=== PATIENT | male | born 1950 | race Caucasian/White ===

== ENCOUNTER 2018-02-12 08:35 | Inpatient (IN) ==
[2018-02-12] MEDS ORDERED: SALINE FLUSH 10ml SYRINGE IVF PRN (08:53)
--- NOTE | 2018-02-12 08:56 | Emergency Department Report ---
General Adult HPI - General Chief complaint: Medical Emergency Stated complaint: cold chills,weak, diabetic Time Seen by Provider: 02/12/18 08:49 Source: patient, family Mode of arrival: wheelchair Limitations: no limitations - History of Present Illness HPI narrative: 67 M presents to the emergency department with a chief complaint of generalized weakness and lightheadedness. Patient noted onset of symptoms at approximately 0200 today. Patient denies any pain or discomfort. Patient notes that he feels very weak when attempting to ambulate and be up and moving. He also was feeling very cold earlier today prior to arrival to the ED. He does not note any exacerbating or remitting factors. No other complaints or associated symptoms. - Related Data Home Medications Medication Instructions Recorded Confirmed Atorvastatin [Lipitor] 20 mg PO HS 02/12/18 02/12/18 Glimepiride [Amaryl] 4 mg PO BID 02/12/18 02/12/18 Lansoprazole [Prevacid] 30 mg PO DAILY 02/12/18 02/12/18 Sitagliptin Phos/Metformin HCl 1 tab PO DAILY 02/12/18 02/12/18 [Janumet Xr 100-1,000 mg Tablet] Allergies Allergy/AdvReac Type Severity Reaction Status Date / Time Penicillins AdvReac Unknown NAUSEA Verified 02/12/18 09:40 Review of Systems Constitutional: Reports: chills. Denies: fever Eyes: Denies: eye pain, vision change ENT: Denies: ear pain, throat pain Cardiovascular: Denies: chest pain, palpitations Respiratory: Denies: cough, dyspnea Gastrointestinal: Denies: abdominal pain, nausea, vomiting, diarrhea Genitourinary: Denies: urgency, dysuria Musculoskeletal: Denies: back pain, arthralgia Integumentary: Denies: erythema, rash Neurological: Denies: headache, numbness, paresthesias Psychiatric: Denies: anxiety, depression Endocrine: Denies: polydipsia, polyuria Hematological/Lymphatic: Denies: easy bruising, lymphadenopathy Allergic/Immunologic: Denies: facial swelling, urticaria [facility] Medical History (Last Reviewed 01/07/18 @ 13:21 by FRANCISCO Nascimento) Diabetes mellitus type 2, uncontrolled, without complications (Chronic Medical ~ 2007) Control improved on Trulicity. However the use with DPP4 inhibitor is not indicated. Will stop Januvia XR. Diabetic peripheral neuropathy associated with type 2 diabetes mellitus ( Chronic Medical) Mild. Hyperlipidemia LDL goal <100 (Chronic Medical) On Lipitor. Hypercalcemia (Chronic Medical) Uncertain etiology, but should have further evaluation given history of kidney stones. Nephrolithiasis (Chronic Medical) CKD (chronic kidney disease) stage 3, GFR 30-59 ml/min (Chronic Medical) Surgical History: -lithotrypsy kidney stones. -extraction of all teeth Family History: Family History (Last Reviewed 01/07/18 @ 13:21 by Trinidad Morales Ac) Brother Cancer of thyroid Father Heart disease Sister Diabetes Mother Stroke - Social History Smoking status: Never smoker Substance use type: does not use Alcohol intake frequency: does not drink Physical Exam - Limitations Limitations: no limitations - General General appearance: alert, in no apparent distress - Normal Exams: Head:: Normocephalic without trauma Eyes:: Pupils are PERRLA w/ EOMI, No scleral icterus, irritation, or foreign bodies noted ENMT:: No facial trauma, nasal exudates, pharyngeal erythema, or exudates are noted Dental: No fractured, loose, or missing teeth noted Neck:: Full range of motion, without adenopathy, JVD, bruits or thyromegaly Chest/Respirations:: Clear all michael (Coarse breath sounds right side.), with good airflow, and symmetry bilaterally Cardiovascular:: Regular rate and rhythm, without murmur or gallop, Pulses 2+ all extremities, capillary refill, <2 seconds all extremities Abdomen:: Bowel sounds positive, soft, non-tender, non-distended, no hepatosplenomegaly, masses or bruits noted Lymphatic:: No lymphadenopathy, or lymphedema noted Musculoskeletal:: No tenderness, or deformity noted, good range of motion, all extremities Integumentary:: No rashes, hives, or bruising noted, hair and nails, without abnormality Neurological:: Patient is alert, and oriented, cranial nerves, motor/sensory/ cerebellar, exams w/o gross deficits, to observation Psychiatric:: Patient exhibits, appropriate attention, emotion and affect Medical Decision Making - [facility] Narrative Medical decision making narrative: Labs/imaging were discussed in detail with the patient and family and questions are answered. Patient is given approximately 2.5 L normal saline intravenously in the emergency department. Patient is started on Levaquin 750 mg IV times one at 1051 when sepsis was considered. Patient was never hypotensive in the emergency department and did not have a lactic acid greater than 4. Patient declines offered analgesic pain medication in the emergency department. Patient is discussed with the service of Dr. Chon Alvarenga admitted to his service in improved condition. No further orders from accepting physician who is in agreement with the current plan of management. Patient is accepted to the hospital by Dr. Alvarenga. Patient and family are in agreement with the current plan of management. No further orders - Differential Diagnosis pneumonia, UTI, metabolic disorder, dehydration - Lab Data Result diagrams: 02/12/18 09:09 02/12/18 09:09 Lab Results 02/12/18 Range/Units 08:45 Glucometer 190 (65-110) mg/dL - Radiology Data CXR - R sided infiltrate. CT head: No acute processes. - EKG Data EKG #1 EKG results narrative: Accelerated junctional rhythm. No STEMI. 127 bpm. Disposition Clinical Impression: Pneumonia Qualifiers: Pneumonia type: due to unspecified organism Laterality: unspecified laterality Lung location: unspecified part of lung Qualified Code(s): J18.9 - Pneumonia, unspecified organism Disposition: 02 To [facility] Acute Care Condition: Improved Time of Disposition: 09:57 - Seen By: physician
--- NOTE | 2018-02-12 09:52 | XRay Report ---
Indication: gen. weakness, fever and chills PROCEDURE: XR chest 1V: Encounter: Initial Comparison: None Findings: Dense consolidation that may be within the right middle or right lower lobe. The remaining lung michael are clear. No pleural effusion or pneumothorax. Heart size and mediastinal contours are within normal limits. Pulmonary vascularity is normal. Impression: Right basilar pneumonia. .
--- NOTE | 2018-02-12 10:02 | CT Scan Report ---
Indication: weakness PROCEDURE: CT head/brain wo con: Encounter: Initial Comparison: December 24, 2014 Technique: Axial CT images through the head were performed without contrast. Iterative Reconstruction dose reducing technique was utilized. FINDINGS: The ventricles are of normal size, shape, and contour for the patient's age. Interval development of a chronic appearing left caudate lacunar infarct. There are scattered areas of low attenuation in the white matter which most likely represent changes from chronic microvascular ischemia. The brainstem, cerebellum, and cerebral hemispheres otherwise have a normal morphology and CT attenuation. There is no evidence of midline displacement. No hemorrhage, signs of acute territorial stroke, mass effect, mass lesions, or edema is evident. The visualized portions of the skull base, midface, and calvarium demonstrate no abnormality. The paranasal sinuses are well aerated and free of significant disease. The tympanic and mastoid cavities appear normal. IMPRESSION: No acute intracranial abnormality or hemorrhage. .
[2018-02-12] MEDS ORDERED: NS 1,000 ML IV ONE (10:22)
[2018-02-12] MEDS ORDERED: LEVOFLOXACIN PB 750 MG/150 ML BAG IV SCH (11:00)
[2018-02-12] MEDS ORDERED: NS 1,000 ML IV SCH (11:15)
[2018-02-12] MEDS ORDERED: BISACODYL 10 MG SUPPOSITORY RECTALLY PRN (11:20)
[2018-02-12] MEDS ORDERED: PROCHLORPERAZINE 10 MG/2 ML INJECTION IVP PRN (11:20)
[2018-02-12] MEDS ORDERED: ACETAMINOPHEN 325 MG TABLET PO PRN (11:20)
[2018-02-12] MEDS ORDERED: MENTHOL COUGH DROPS (RICOLA) MM ONE (11:20)
[2018-02-12] MEDS: NS 1,000 ML IV SCH ×6 (11:20→19:53)
[2018-02-12] MEDS ORDERED: PNEUMOCOCCAL 13 VACCINE 0.5ml INJECTION IM ONE (11:48)
--- NOTE | 2018-02-12 11:50 | History & Physical Report ---
History of Present Illness Date: 02/12/18 Chief complaint: Chills HPI: Patient is a 67-year-old male who awoke at 2 a.m. with chills, accompanied with fatigue. This morning he felt mildly short of breath. He presented to the emergency room for further evaluation and on arrival he was found be tachycardic in the 120s and tachypnea 26 breaths per minute. Basic laboratory studies were obtained. Count was found be normal at 10.7 with 78% neutrophils and 9% bandemia. Chemistry panel was unremarkable. A venous lactate was obtained that was elevated at 3.0. Troponin was undetectable and UA was negative. A chest x-ray was obtained that did reveal basilar pneumonia. Was started on IV fluid bolus of 30 mL per kilogram with a total volume to be 2700 mL. Patient was started on Levaquin living blood cultures. Since persistent tachycardia, accompanied with findings of pneumonia. The hospitalist services were contacted and accepted patient for outpatient observation for further evaluation and treatment. Fermin is seen the emergency room. He is alert, oriented and pleasant. He does state he felt normal until waking up at 2 a.m. with chills. At time of examination. Patient states that he feels much better and contemplates leaving. However, given his elevated venous lactate. It was recommended that he be observed with repeat labs later today. Patient is in agreement. Review of Systems All systems PM: 10-point ROS was reviewed, no additional remarkable complaints except - Constitutional Constitutional: Present: chills, fatigue Past Medical History Medical History: Medical History (Last Reviewed 02/12/18 @ 11:50 by Radha Cantu, RHYS) Diabetes mellitus type 2, uncontrolled, without complications (Chronic) Onset Date: ~2007 Control improved on Trulicity. However the use with DPP4 inhibitor is not indicated. Will stop Januvia XR. Diabetic peripheral neuropathy associated with type 2 diabetes mellitus (Chronic ) Mild. Hyperlipidemia LDL goal <100 (Chronic) On Lipitor. Hypercalcemia (Chronic) Uncertain etiology, but should have further evaluation given history of kidney stones. Nephrolithiasis (Chronic) CKD (chronic kidney disease) stage 3, GFR 30-59 ml/min (Chronic) Surgical History: Lithotrypsy of renal stones. Extraction of all teeth. Cyst removed from shoulder Family History: Brother- Cancer of thyroid Father- CAD with bypass, cancer Sister- Diabetes Mother- Stroke, Back problems Family History: As Above - Social History Smoking status: Former smoker (in his 20's) Substance use type: does not use Alcohol intake frequency: does not drink Housing: house Household members: spouse Current occupational status: employed Social history: PCP Dr Piña Medications Home Medications Medication Instructions Recorded Confirmed Type Atorvastatin [Lipitor] 20 mg PO HS 02/12/18 02/12/18 History Glimepiride [Amaryl] 4 mg PO BID 02/12/18 02/12/18 History Lansoprazole [Prevacid] 30 mg PO DAILY 02/12/18 02/12/18 History Sitagliptin Phos/Metformin HCl 1 tab PO DAILY 02/12/18 02/12/18 History [Janumet Xr 100-1,000 mg Tablet] Allergies Allergy/AdvReac Type Severity Reaction Status Date / Time Penicillins AdvReac Unknown NAUSEA Verified 02/12/18 09:40 Exam Vital Signs: Temperature 97.3 F 02/12/18 10:12 Pulse Rate 119 H 02/12/18 10:53 Respiratory Rate 26 H 02/12/18 10:53 Blood Pressure 112/81 02/12/18 10:53 Pulse Oximetry 95 02/12/18 10:53 Telemetry Rhythm: Sinus Tachycardia (120's) Height/Weight/BMI: Height 1.83 m Weight 90.5 kg - Constitutional Present: well nourished, well developed - Routine HEENT Exam Eye: Present: EOMI ENT: Present: mucous membranes moist, dentition normal - Routine Respiratory Exam Present: CTA bilaterally. Absent: wheezes - Routine Cardiovascular Exam Present: S1, S2, tachycardia (120's). Absent: murmur - Routine Abdominal Exam Present: soft, normoactive bowel sounds, non distended. Absent: tenderness - Routine Extremities Exam Present: no edema, pulses intact - Routine Back/Spine/Pelvis Exam Back/Spine: Present: full ROM - Routine Skin Exam Present: intact, dry, warm - Routine Neurological Exam Present: alert, oriented X3, CN II-XII intact, moving all extremities - Routine Psychiatric Exam Present: normal affect, normal thought process, cooperative Results - Labs CBC & Chem 7: 02/12/18 09:09 02/12/18 09:09 Microbiology Results: Microbiology 02/12/18 10:32 Peripheral/Iv Start Blood Culture - Preliminary Culture Initiated - Results Pending 02/12/18 10:23 Peripheral/Iv Start Gram Stain - Final Not performed Assessment and Plan Assessment and Plan: Impression Severe Sepsis- Elevated brittni lactate- 3, Tachycardia- 120, Tachypnea- 26 Community acquired Pneumonia Type II diabetes Peripheral neuropathy Hyperlipidemia CKD- Stage 3 Hypercalcemia History of renal stones Plan Admit outpt observation under the care of Dr Quezada Patient does meet criteria for severe sepsis with 2+ SIRS criteria with Pneumonia and Lactate of 3 Will repeat a lactate at 1430. It may be elevated related to Metformin use Blood cultures were obtained and he was started on IV Levaquin for coverage of CAP Complete IV fluid bolus- 30ml/kg = 2700ml bolus. Then decrease rate to 100 ml/hr Qsofa score- 1/3- indicates low risk for mortality Monitor Accu checks and continue on home Glimepiride. Place Janumet on hold and utilize SSI as needed Pt states he has not been taking Lipitor for the past 2 weeks. Monitor on cardiac telemetry given sinus tachycardia- likely related to infectious process SCD to bilateral lower ext for DVT PPX Patient does wish to be a Full Code and this order is written Will discuss further orders and plan of care with attending, Dr. Quezada At time of discharge medical care will return to primary care provider, Dr Piña DVT Prophylaxis: SCD's Resuscitation Status: Full Code - Time spent with patient Time with patient PN: 50 minutes - Physician Narrative Physician: Chon Quezada MD Narrative: Date: 02/12/18 Time: 1700 Have independently interviewed and examined pt. Chart reviewed. Case discussed with ED provider and my WILDERNESS GUIDE. Care plan developed with my supervision; agree with above. Woke this morning feeling miserable. Shaking chills, very SOA, and very weak. Has been in typical state of health recently-not ill the past days. No obvious ill contacts. Appetite stable. Not having diarrhea or constipation. Urine stable. Evaluated in ED. Tachycardic and tachypneic. WBC 10.7 but 78% polys and 9% bands noted. Lactic acid elevated at 3.0. CXR showing evidence for pneumonia. With concern for severe sepsis syndrome, patient placed in inpatient admission for aggressive supportive treatment. Lungs: decreased, basilar blunting. CV: regular AB: soft nt/nd MSE: awake alert Plan: Inpatient admission for treatment of severe sepsis syndrome secondary to pneumonia. Levaquin for pulmonary coverage. IVF bolus give, will continue with IVF for hydration. Hold metformin due to elevation of lactic acid. Monitor sugars. Monitor lab. Full code as per his request. Care to return to Dr Piña at time of discharge from [facility]. Hospital Course Summary Disclaimer: The visit summary below is not to be considered part of the above Progress Note. Hospital Course: Impression Severe Sepsis- Elevated brittni lactate- 3, Tachycardia- 120, Tachypnea- 26 Community acquired Pneumonia Type II diabetes Peripheral neuropathy Hyperlipidemia CKD- Stage 3 Hypercalcemia History of renal stones Plan Admit outpt observation under the care of Dr Quezada Patient does meet criteria for severe sepsis with 2+ SIRS criteria with Pneumonia and Lactate of 3 Will repeat a lactate at 1430. It may be elevated related to Metformin use Blood cultures were obtained and he was started on IV Levaquin for coverage of CAP Complete IV fluid bolus- 30ml/kg = 2700ml bolus. Then decrease rate to 100 ml/hr Qsofa score- 1/3- indicates low risk for mortality Monitor Accu checks and continue on home Glimepiride. Place Janumet on hold and utilize SSI as needed Pt states he has not been taking Lipitor for the past 2 weeks. Monitor on cardiac telemetry given sinus tachycardia- likely related to infectious process SCD to bilateral lower ext for DVT PPX Patient does wish to be a Full Code and this order is written Will discuss further orders and plan of care with attending, Dr. Quezada At time of discharge medical care will return to primary care provider, Dr Piña
[2018-02-12 12:05] VITALS: BMI 27.6
[2018-02-12] MEDS: ENOXAPARIN 40 MG/0.4 ML INJECTION SQ SCH (15:14)
[2018-02-12] MEDS: GUAIFENESIN/D-METHORPHAN 600mg/30mg TABLET PO SCH ×2 (15:14→22:01)
[2018-02-12] MEDS ORDERED: ATORVASTATIN 20 MG TABLET PO SCH (21:00)
[2018-02-12 22:19] VITALS: RESP 16
[2018-02-13] MEDS: NS 1,000 ML IV SCH ×2 (02:46→09:04)
[2018-02-13 06:03] VITALS: PULSE 67
[2018-02-13] MEDS ORDERED: OMEPRAZOLE 20 MG CAPSULE PO SCH (06:30)
[2018-02-13 07:52] VITALS: BP 153/80; TEMP 97; O2SAT 95
[2018-02-13] MEDS ORDERED: LANSOPRAZOLE 30 MG PO SCH (09:00)
--- NOTE | 2018-02-13 09:01 | Progress Note ---
- Date 02/13/18 Subjective: F/U: Severe Sepsis- Elevated, Community acquired Pneumonia Doing very well this morning. Breathing well-no SOA, cough, congestion, or pain with breathing. Not having the f/c, sweats, weakness like yesterday. Ambulating well-not feeling dizzy or unsteady when up. Eating well. No ab pain or nausea. Urinating well. Very desirous to go home. Objective Vital signs: Temperature 97.0 F 02/13/18 07:51 Pulse Rate 67 02/13/18 07:51 Respiratory Rate 16 02/13/18 07:51 Blood Pressure 153/80 H 02/13/18 07:51 Pulse Oximetry 95 02/13/18 07:51 Height/Weight/BMI: Height 1.83 m Weight 92.5 kg Body Mass Index 27.6 - Constitutional Present: no acute distress, moderate distress, well developed, average body habitus, cooperative. Absent: combative, agitated, somnolent, obtunded - Routine HEENT Exam Head: Present: normocephalic, atraumatic Eye: Present: EOMI, PERRL, normal accommodation ENT: Present: mucous membranes moist - Routine Respiratory Exam Present: CTA bilaterally. Absent: rales, respiratory distress, rhonchi, stridor , wheezes, crackles - Routine Cardiovascular Exam Present: RRR, no murmur - Routine Abdominal Exam Present: soft, normoactive bowel sounds, non distended, non tender. Absent: guarding - Routine Extremities Exam Present: no edema, pulses intact. Absent: cyanosis, clubbing - Routine Skin Exam Present: intact, dry, warm - Routine Neurological Exam Present: alert, oriented X3, CN II-XII intact, moving all extremities, vision grossly intact, hearing grossly intact, normal speech. Absent: motor deficit, altered mental status - Routine Psychiatric Exam Present: normal affect, normal thought process, cooperative Results - Labs CBC & Chem 7: 02/13/18 04:40 02/13/18 04:40 Microbiology Results: Microbiology 02/12/18 10:23 Peripheral/Iv Start Blood Culture - Preliminary Culture Initiated - Results Pending 02/12/18 10:32 Peripheral/Iv Start Blood Culture - Preliminary Culture Initiated - Results Pending Assessment and Plan (1) Severe sepsis Current visit: Yes Status: Acute Assessment and Plan: Impression Severe Sepsis- Elevated brittni lactate- 3, Tachycardia- 120, Tachypnea- 26 Community acquired Pneumonia Type II diabetes Peripheral neuropathy Hyperlipidemia CKD- Stage 3 Hypercalcemia History of renal stones Plan Clinically improving. Breathing stable-maintaining saturations on room air. WBC with slight increase, but no fevers or chills. Vitals stable. No hypotension. As patient very desirous to go home do feel is reasonable. Will continue with ciprofloxacin 500mg po BID for 1 week course. Mucinex as need. Hold Janumet for 3 days secondary to elevated lactic acid. F/U with Dr Piña in 1 week for reevaluation, sooner as problems or need arise. See orders for detail. Case discussed with patient and his . Time spent with patient care and discharge greater than 30 minutes. Patient seen with myself and my AIRPORT CLERK at the same time. DVT Prophylaxis: SCD's Resuscitation Status: Full Code - Physician Narrative Physician: Chon Quezada MD Narrative: Date: 02/13/18 Time: 0858 Hospital Course Summary Disclaimer: The visit summary below is not to be considered part of the above Progress Note. Hospital Course: 02/12/18 Admit outpt observation under the care of Dr Quezada Patient does meet criteria for severe sepsis with 2+ SIRS criteria with Pneumonia and Lactate of 3 Will repeat a lactate at 1430. It may be elevated related to Metformin use Blood cultures were obtained and he was started on IV Levaquin for coverage of CAP Complete IV fluid bolus- 30ml/kg = 2700ml bolus. Then decrease rate to 100 ml/hr Qsofa score- 1/3- indicates low risk for mortality Monitor Accu checks and continue on home Glimepiride. Place Janumet on hold and utilize SSI as needed Pt states he has not been taking Lipitor for the past 2 weeks. Monitor on cardiac telemetry given sinus tachycardia- likely related to infectious process SCD to bilateral lower ext for DVT PPX Patient does wish to be a Full Code and this order is written Will discuss further orders and plan of care with attending, Dr. Quezada At time of discharge medical care will return to primary care provider, Dr Piña 02/13/18 Clinically improving. Breathing stable-maintaining saturations on room air. WBC with slight increase, but no fevers or chills. Vitals stable. No hypotension. As patient very desirous to go home do feel is reasonable. Will continue with ciprofloxacin 500mg po BID for 1 week course. Mucinex as need. Hold Janumet for 3 days secondary to elevated lactic acid. F/U with Dr Piña in 1 week for reevaluation, sooner as problems or need arise. See orders for detail.
[2018-02-13] MEDS: ENOXAPARIN 40 MG/0.4 ML INJECTION SQ SCH (09:04)
[2018-02-13] MEDS: GUAIFENESIN/D-METHORPHAN 600mg/30mg TABLET PO SCH (09:04)
--- NOTE | 2018-02-13 11:25 | Discharge Summary ---
Discharge Information Date of admission: 02/12/18 10:53 Anticipated date of discharge: 02/13/18 Attending Physician: Chon Quezada MD Primary care physician: Aravind Piña MD - Discharge Diagnosis (1) Severe sepsis Status: Acute Severe Sepsis- Elevated brittni lactate- 3, Tachycardia- 120, Tachypnea- 26 Community acquired Pneumonia Type II diabetes Peripheral neuropathy Hyperlipidemia CKD- Stage 3 Hypercalcemia History of renal stones - Procedures Procedures: None - Laboratory Labs: 02/13/18 04:40 02/13/18 04:40 Laboratory Tests 02/12/18 02/12/18 10:23 16:05 Plasma Lactate 3.0 H 2.3 H - Microbiology Microbiology 02/12/18 10:32 Peripheral/Iv Start Blood Culture - Preliminary No Growth After 1 Day 02/12/18 10:23 Peripheral/Iv Start Blood Culture - Preliminary No Growth After 1 Day - Radiology Radiology: 02/12/18 Chest Xray- Right basilar pneumonia. Ct head- No acute intracranial abnormality or hemorrhage. - Pathology None History of Present Illness HPI: Patient is a 67-year-old male who awoke at 2 a.m. with chills, accompanied with fatigue. This morning he felt mildly short of breath. He presented to the emergency room for further evaluation and on arrival he was found be tachycardic in the 120s and tachypnea 26 breaths per minute. Basic laboratory studies were obtained. Count was found be normal at 10.7 with 78% neutrophils and 9% bandemia. Chemistry panel was unremarkable. A venous lactate was obtained that was elevated at 3.0. Troponin was undetectable and UA was negative. A chest x-ray was obtained that did reveal basilar pneumonia. Was started on IV fluid bolus of 30 mL per kilogram with a total volume to be 2700 mL. Patient was started on Levaquin living blood cultures. Since persistent tachycardia, accompanied with findings of pneumonia. The hospitalist services were contacted and accepted patient for outpatient observation for further evaluation and treatment. Fermin is seen the emergency room. He is alert, oriented and pleasant. He does state he felt normal until waking up at 2 a.m. with chills. At time of examination. Patient states that he feels much better and contemplates leaving. However, given his elevated venous lactate. It was recommended that he be observed with repeat labs later today. Patient is in agreement. Objective Vital signs: Temperature 97.0 F 02/13/18 07:51 Pulse Rate 67 02/13/18 07:51 Respiratory Rate 16 02/13/18 07:51 Blood Pressure 153/80 H 02/13/18 07:51 Pulse Oximetry 95 02/13/18 07:51 Height/Weight/BMI: Height 1.83 m Weight 92.5 kg Body Mass Index 27.6 - Constitutional Present: no acute distress, well nourished, well developed - Routine HEENT Exam Eye: Present: EOMI ENT: Present: mucous membranes moist, dentition normal - Routine Respiratory Exam Present: CTA bilaterally. Absent: wheezes - Routine Cardiovascular Exam Present: RRR, S1, S2. Absent: murmur - Routine Abdominal Exam Present: soft, normoactive bowel sounds, non distended. Absent: tenderness - Routine Extremities Exam Present: normal capillary refill - Routine Skin Exam Present: intact, dry, warm - Routine Neurological Exam Present: alert, oriented X3, CN II-XII intact, moving all extremities - Routine Lymphatic Exam Lymphatic: Absent: adenopathy - Routine Psychiatric Exam Present: normal affect, normal thought process, cooperative Hospital Course This is a general summary of the patient's hospital course. For more details refer to the complete medical record. Hospital course: 02/12/18 Admit outpt observation under the care of Dr Quezada Patient does meet criteria for severe sepsis with 2+ SIRS criteria with Pneumonia and Lactate of 3 Will repeat a lactate at 1430. It may be elevated related to Metformin use Blood cultures were obtained and he was started on IV Levaquin for coverage of CAP Complete IV fluid bolus- 30ml/kg = 2700ml bolus. Then decrease rate to 100 ml/hr Qsofa score- 1/3- indicates low risk for mortality Monitor Accu checks and continue on home Glimepiride. Place Janumet on hold and utilize SSI as needed Pt states he has not been taking Lipitor for the past 2 weeks. Monitor on cardiac telemetry given sinus tachycardia- likely related to infectious process SCD to bilateral lower ext for DVT PPX Patient does wish to be a Full Code and this order is written Will discuss further orders and plan of care with attending, Dr. Quezada At time of discharge medical care will return to primary care provider, Dr Piña 02/13/18- Discharge Clinically improving. Breathing stable-maintaining saturations on room air. WBC with slight increase, but no fevers or chills. Vitals stable. No hypotension. As patient very desirous to go home do feel is reasonable. Will continue with ciprofloxacin 500mg po BID for 1 week course. Mucinex as need. Hold Janumet for 3 days secondary to elevated lactic acid. F/U with Dr Piña in 1 week for reevaluation, sooner as problems or need arise. See orders for detail. Time spent with patient: discharge greater than 30 minutes Resuscitation Status: Full Code Discharge Plan - Discharge Disposition Discharge Date: 02/13/18 Disposition: 01 Discharged Home, Self-Care *Condition: Improved Reason For Visit (Visit label in EMR): pneumonia - Discharge Medications *Discharge Medications: New Ciprofloxacin HCl [Cipro] 500 mg PO BID 7 Days #14 tab Guaifenesin/Dm [Mucinex Dm] 1 tab PO BID tab Continue Atorvastatin [Lipitor] 20 mg PO HS Lansoprazole [Prevacid] 30 mg PO DAILY Glimepiride [Amaryl] 4 mg PO BID Sitagliptin Phos/Metformin HCl [Janumet Xr 100-1,000 mg Tablet] 1 tab PO DAILY - Discharge Packet/Instructions *Diet: ADA carb consistent diet *Activity: As tolerated *Pain Management/Treatment: Tylenol as needed for pain *Wound Care: None Additional Instructions: Cipro antiobiotic twice a day for 1 week. May use OTC mucinex. stay well hydrated. Can use OTC probiotics to help if stools become too soft. Do not take Janumet for 3 days. Then resume normally *Expected Signs/Symptoms: Improvement in strength, coughing and breathing *Notify Physician if: Fever/shakes or chills. Worsening breathing, chest pain, vomiting or other concerning symptoms *During Business Hours Contact: Dr Piña *After Business Hours Contact: Page oncall Dr gertrudis Piña or present to ER *Pending Lab/Results: No Pending Lab - Referrals/Follow Up *Referrals/Follow Up: Aravind Piña MD [Primary Care Provider] - (schedule follow up apt for 1 week) - Patient Handouts - Dismissal Complete Discharge Instructions are:: Complete Physician Narrative - Narrative Physician: Chon Quezada MD Attestation Narrative: Date: 02/13/18 Time: 1121 I have independently interviewed and examined patient prior to discharge. See my progress note for details. Medically stable for discharge.
== END 2018-02-13 09:15 | disposition home or self-care (01) | DRG 871 ==
LOC: ED 08:35 → EDHOLD 10:53 → MED 11:30
PROVIDERS: ADMIT Hospitalist; ATTEND Hospitalist